=== PATIENT | male | born 1965 | race Caucasian/White ===

== ENCOUNTER → 2023-05-04 | Outpatient (CLI) | payer SELFPAY ==
--- NOTE | 2023-05-04 10:33 | RAD_ITS ---
EXAM: XR LEFT SHOULDER COMPLETE, 2 OR MORE VIEWS CLINICAL INDICATION: PAIN/LIMITED ROM TECHNIQUE: Two or more views of the left shoulder. COMPARISON: No relevant prior studies available. FINDINGS: BONES/JOINTS: Unremarkable. No acute fracture. No subluxation. Normal alignment. Preservation of the joint space. No sclerotic or destructive changes observed. SOFT TISSUES: Unremarkable. No soft tissue swelling or gas. No radiopaque foreign body. RAD/Shoulder min 2 Views IMPRESSION: Negative left shoulder x-rays. Electronically Signed: Manav Hung MD at 0:30 EDT ,
== END | disposition home or self-care (01) ==
PROVIDERS: PCP Nurse Practitioner Family; Referring Provider Nurse Practitioner Family; Visit Provider Nurse Practitioner Family
DX: M25.512 Pain in left shoulder (principal)
CPT/HCPCS: 73030

== ENCOUNTER 2023-05-31 10:00 | Outpatient (RCR) | payer SELFPAY ==
--- NOTE | 2023-05-17 11:25 | HP.PTEVAL_ITS ---
Patient's Visit Information Visit Information Visit Information: FABIAN AGUILAR is a 57 year old M referred to Physical Therapy by Dr. Duane Daily MD with a diagnosis of Left Shoulder. Date of Evaluation: 05/17/23 Physical Therapist: Wendy Robertson DPT Visit Plan Frequency: 1x/Week Duration: 4 Weeks Plan: Patient given HEP for ROM- will re-check patient in 2 weeks- will then either progress HEP or return to MD for further evaluation. HEP Given IE: Table Walk Away Flexion/Abduction and Wall Wash Flexion/Abd Subjective Subjective: Left shoulder- torn RTC and Labrum- slipped and fell- 17 of February- went to chiropractor- laser therapy- got some better- went to ortho had an MRI (results: radiologist interpretation states complete tear of the supraspinatus tendon. There is tendon retraction of 2.8 cm. Thickening and abnormal signal of the subscapularis tendon is present and consistent with tendinosis. There is fluid in the subscapular recess. There is a small loose body in the recess measuring 4 mm. There is articular surface tear of the infraspinatus tendon. There is atrophy of the supraspinatus muscle. There is a tear of the superior labrum and anterior labrum. There is degeneration of the posterior labrum. There is a tear in the middle glenohumeral ligament at the glenoid. Thinning of the articular cartilage of the glenohumeral joint. There is superior or posterior subluxation of the humeral head relative to the glenoid. Degenerative change at the AC joint.) Dr. Daily told him that he needed do PT prior to s urgery to get some movement and then have surgery. He wanted him to do 4 weeks of PT then come back and see him. When he is sitting he is 0/10 pain. Worst: 8/10 Agg: movement. The pain is located in the anterior and superior shoulder that radiates to the elbow and will ache into the palm of his hand. Will radiate into the upper trap but no into the neck. No RODRIGUES, blurred vision, dizziness. No N/T in the hand. Pain he feels he is 20%- function 20%. Sleep: disturbed but is getting better. Right hand dominate. 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 His goal is to put this off until middle of June due to Pelican Season. PMHx/Meds: no changes since ortho visit. Objective Objective: Posture: FH, RS- mild guarding of the left UE Palpation: tender along bicipital groove ROM:Cervical: WNL, Elbow/Wrist/Hand: WNL, Shoulder: AROM Flexion: 110 (7/10) Abd: 110 (7/10), Ext: 50 (4/10) IR behind the Back: hand to middle of belt line (8/10) ER: 40 degrees (5/10), AAROM Flexion: 150 (6/10) Abd: 140 (6/10), IR behind the Back: hand to middle of belt line (8/10) ER: 40 degrees (5/10), PROM: extremely guarded Strength: Neutral Isometric: Flexion: 4+/5 (5/10) Abd: 4-/5 (3/10), Ext: 5/5(0/10) IR: 3+/5 (3/10) ER: 2+/5 (8/10), Elbow: Flexion: 4/5 (4/10), Extn: 4/5 (4/10), Director Human Services: 100 bilateral Balance/Special Test Scores Quick DASH Score: 36.3625 Goals Goal 1:: Patient will be I with HEP and progression Goal Time Frame: 4-6 Weeks Goal 2:: Patient will demo 150 degrees of AROM flexion/abduction of the left shoulder Goal Time Frame: 4-6 Weeks Rehabilitation Potential Physical Therapy Diagnosis: Patient presents with hypomobility- he has decreased ROM in left shoulder s/p fall. Rehabilitation Potential: Fair Anticipated Interventions Therapeutic Exercise to Include: Passive ROM and Active ROM Text: Thank you for the opportunity to evaluate your patient. For Medicare and Medicare HMO plans, please review the plan of care and approve it. It will need to be FAXED BACK to us at [phone] for Medicare purposes. For Medicare only, by signing this I certify the plan of care. Please let me know if there are questions or concerns regarding this plan of care. Physician Signature: Date:
--- NOTE | 2023-05-31 10:26 | HP.PTDCSUM_ITS ---
Discharge Summary D/C summary: It has been my pleasure to treat FABIAN AGUILAR referred by Dr. Duane Daily MD, with the diagnosis of Left Shoulder for a total of 2 visit(s). Discharge Date: Please see the following information for a summary of their discharge status. Subjective Subjective: Patient reports that the shoulder is loosening up a little better- he can do more things with it- he still has the same amount of pain with shoulder. He does not have an apt to go back and see the surgeon- he has been working the shoulder. Overall Improvement % Improvement: 60 Objective Objective/Function: Cervical: WNL, Elbow/Wrist/Hand: WNL, Shoulder: AROM Flexion: 130 (7/10) Abd: 120 (7/10), Ext: 70 (1/10) IR behind the Back: thumb to L1 (8/10) ER: 50 degrees (1/10), AAROM Flexion: 170 (6/10) Abd: 140 (6/10), IR behind the Back: hand to middle of belt line (10) ER: 40 degrees (5/10), PROM: extremely guarded Strength: Neutral Isometric: Flexion: 4+/5 (0/10) Abd: 4+/5 (1/10), Ext: 5/5(0/10) IR: 4/5 (1/10) ER: 2+/5 (5/10), Elbow: Flexion: 4+/5 (0/10), Extn: 4+/5 (010), Software Installer: 100 bilateral Goals Goal 1:: Patient will be I with HEP and progression Goal Progress: Goal Met Goal 2:: Patient will demo 150 degrees of AROM flexion/abduction of the left shoulder Goal Progress: Goal Met Plan Plan: 05/31/23: Discharge to I HEP and follow up with MD IE: Patient given HEP for ROM- will re-check patient in 2 weeks- will then either progress HEP or return to MD for further evaluation. HEP Given IE: Table Walk Away Flexion/Abduction and Wall Wash Flexion/Abd D/C Information d/c sentence: If there are questions or concerns regarding this patient's physical therapy, please feel free to call me at [phone]. Thank you for the referral of this patient. Sincerely, Wendy Robertson, DPT Balance/Gait/Functional tests Balance/Special Test Scores Quick DASH Score: 25.0000 Improvement % Improvement: 60
== END 2023-05-31 13:52 | disposition home or self-care (01) ==
LOC: PT 10:00
PROVIDERS: PCP Nurse Practitioner Family; Referring Provider Orthopaedic Surgery Sports Medicine; Visit Provider Orthopaedic Surgery Sports Medicine
DX: M25.512 Pain in left shoulder (principal); M25.612 Stiffness of left shoulder, not elsewhere classified
CPT/HCPCS: 97110; 97162; 97164

== ENCOUNTER 2023-08-31 05:19 | Day surgery (SDC) | payer SELFPAY ==
--- NOTE | 2023-08-31 05:27 | EKG12_ITS ---
Test Reason : PRE-OP Blood Pressure : / mmHG Vent. Rate : 055 BPM Atrial Rate : 055 BPM P-R Int : 170 ms QRS Dur : 090 ms QT Int : 440 ms P-R-T Axes : 009 031 023 degrees QTc Int : 420 ms Sinus bradycardia with sinus arrhythmia Otherwise normal ECG No previous ECGs available Confirmed by HAWK FLORES, JUNG ([id number]), editorial assistant TAINA BELLAMY ([id number]) on 09/06/2023 11:25:53 AM Referred By: Duane Daily Confirmed By:JUNG ARECHIGA MD
[2023-08-31 06:02] VITALS: BP 135/75; PULSE 55; RESP 16; TEMP 36.3; O2SAT 97; BMI 28.6
[2023-08-31] MEDS: Lactated Ringers 1,000 ML 15 ML IV (06:10)
--- NOTE | 2023-08-31 07:09 | PCM.HP.STD ---
HPI - General HPI Narrative FABIAN AGUILAR, is a 58 M who presents for left shoulder arthroscopy, subacromial decompression, rotator cuff repair, possible biceps tenodesis. no changes to h and p. left shoulder marked. rab and narcotic counselling, ok to proceed. plan for a block. MR#: [id number] Acct: [id number] Name: FABIAN AGUILAR Rep #: [id number] : 1965 Provider: Dr. Duane Daily MD Age/Sex: 57/M Location: [facility] [place] Status: Signed Intake Vital Signs 05/13/2309:49 Height 5 ft 9 in Weight: 201 lb BMI 29.7 Intake Visit Reasons: LEFT SHOULDER Chief Complaint: left shoulder Accompanied by: Self Is patient in pain?: Yes Pain scale (1-10): 6 Allergies No Known Allergies Allergy (Unverified 06/10/23 13:10) Medications NK 05/13/23 [History Confirmed 06/10/23] PFSH Medical History Detachment of left glenoid labrum Left rotator cuff tear Left shoulder pain Stiffness of left shoulder joint Social History Smoking Status: Never smoker alcohol intake: never substance use type: does not use HPI LEFT SHOULDER Details: Parts of this documentation were recorded by a scribe, this documentation accurately reflects the service provided and the decisions made by me, Dr. Duane Daily MD 06/10/23 1113. FABIAN AGUILAR is a 57 year old M here today for FU L shoulder pain, RC tear + SLAP and stiffness, doing PT for the stiffness prior to considering surgery. The shoulder still feels weak and painful but he has been working diligently with physical therapy over the last 6 weeks and has made things in terms of that. Ortho Exam General General: Yes no acute distress Neurologic: Yes alert and Yes oriented x3 Psychologic: Yes reasonable and appropriate Left Shoulder Skin/Wound: Yes CDI, No ecchymosis, No erythema and No swelling Testing: Yes Hawkin's and Yes Neer's SHOULDER: Active and passive forward elevation 145 degrees external rotation 45 degrees. Strength in forward elevation 4/5 strength in external rotation 4/5. Negative Hornblower's test negative lag sign. He is quite weak in forward elevation. Coding Level of Care Code Off vis,est,level 3 Diagnoses Left rotator cuff tear M75.102 Detachment of left glenoid labrum S43.82XA Stiffness of left shoulder joint M25.612 Assessment and Plan Assessment and Plan (1) Left rotator cuff tear: Status: Acute Plan: 57-year-old man with some still mild shoulder stiffness and definite weakness he likely has had an acute rotator cuff tear from the fall. It also shows a tear of the superior aspect of the labrum consistent with a SLAP tear. He could continue to try nonoperative management and strengthening but I favor this to be more so keeping with an acute tear and he has the risk of having tendon retraction and fatty infiltration and continued problems with the shoulder with non op care. That being said surgery does have risk of stiffness difficulty healing the tear or retear and other problems associated with surgery that we discussed. He would like to go ahead with left shoulder arthroscopy, subacromial decompression, rotator cuff repair, possible biceps tenodesis explained this to him as well as recovery 3 to 6 months before going back to lifting. 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 He understands would like to proceed with surgery. Pros and cons risks and benefits were discussed with the patient including but not limited to infection, pain, stiffness, bleeding, damage to surrounding structures, neurovascular injury, recurrence or retear, failure or wear of hardware or fixation, instability, fracture, deep vein thrombosis and pulmonary embolism, anesthetic risks, , patient dissatisfaction, need for further surgery and other risks. Patient understood and wished to proceed with surgery, and signed the informed consent documentation. from prior note 57-year-old man 2 months history of left shoulder injury with a rotator cuff tear weakness and stiffness. He also seems to have suffered potentially a subluxation or instability of the shoulder with the MRI evidence of labral tear. I think with the subluxation labral tear he is going on to develop stiffness given age and injury pattern, as well as from disuse. Low chance of repeat instability. Overall if this is an acute tear I would recommend for rotator cuff repair arthroscopically but he has quite a bit of even passive stiffness and going into surgery immediately would exacerbate this and make the recovery extremely difficult very high chance of postoperative stiffness. At this point I would like the patient to do work on passive and assisted stretching made a physical therapy referral asked him to do this twice a week as well as on his own at home showed him table slides wall walks and various other methods to work on his forward elevation and external rotation stiffness and follow-up in 4 weeks time. If at that time that his range of motion has improved can consider going ahead with arthroscopic decompression rotator cuff repair possibly stabilization although this is known to contribute to high levels of stiffness postoperatively as well as possibly a procedure on the biceps based on if he has a SLAP tear arthroscopically. He understands no further questions or concerns. (2) Detachment of left glenoid labrum: Status: Acute (3) Stiffness of left shoulder joint: [facility] Medical History (Updated 08/19/23 @ 11:15 by Patt Schultz) Detachment of left glenoid labrum Heartburn Left rotator cuff tear Left shoulder pain Non-smoker Stiffness of left shoulder joint Wears partial dentures Home Medications NK 05/13/23 [History Last Taken Unknown] Allergy/AdvReac Type Severity Reaction Status Date / Time No Known Allergies Allergy Verified 08/31/23 05:57 Surgical History (Updated 08/19/23 @ 11:15 by Patt Schultz) Hx laparoscopic cholecystectomy Hx of appendectomy Social History Smoking Status: Never smoker alcohol intake: never substance use type: does not use Vital Signs Vital Signs Vital Signs: 08/31/23 06:02 08/31/23 06:02 Temperature 97.4 F L Temperature Source Temporal Pulse Rate 55 L Respiratory Rate 16 Respiratory Pattern Normal Blood Pressure 135/75 H Blood Pressure Mean 95 Blood Pressure Source Monitor Blood Pressure Position Semi-Fowlers Blood Pressure Location Right Arm Pulse Ox 97 Oxygen Delivery Method Room Air Weight Weight: 194 lb 0.108 oz Body Mass Index (BMI) 28.6
[2023-08-31] MEDS: Cefazolin 2 GM in 0.9% Normal Saline (100mL Bag) 100 ML IV (07:25)
[2023-08-31] MEDS: Epinephrine (1 mg/ml) 1 MG/ML VIAL (08:14)
--- NOTE | 2023-08-31 10:33 | PCM.OPRPT ---
Problems Associated Problem List Diagnoses (1) Stiffness of left shoulder joint: (2) Left shoulder pain: (3) Left rotator cuff tear: Report of Operation Date of Procedure: 08/31/23 Pre-Operative Diagnosis: L shoulder rotator cuff tear possible slap Post-Operative Diagnosis: left shoulder rotator cuff tear Surgery/Procedure Performed:: left shoulder arthroscopy, rotator cuff repair, subacromial decompression Surgeon: Duane Daily Type of Anesthesia: Block,Regional and General Anesthesiologist: John Gonzalez Estimated Blood Loss (mL): 100 Description of Procedure: Patient brought to room theater. Placed supine on the table. General anesthesia induced. 2 g IV Ancef administered prior to the start of the procedure. Patient transferred left side up lateral decubitus position with beanbag positioner. SCDs on the legs axillary roll used all bony prominences padded. 10 pounds of inline traction with the arm in 45 degrees abduction was used. Upper extremity prepped and draped in the usual sterile fashion chlorhexidine-based prep solution allowing over 3 minutes drying time prior to draping. Preoperative timeout performed to confirm the site patient and the surgery. Began by inserting the arthroscope into the intra-articular portion of the shoulder. Did a full diagnostic arthroscopy. Cartilage on the glenoid and humeral head was normal. Normal axillary recess. Infraspinatus tendon appeared normal. Biceps root was normal stable solid to probing no tears of the biceps tendon. Some mild fraying of the anterior labrum partial tearing at 4 oclock This was left alone - symptoms of pre op stiffness with plan for cuff repair. I made an anterior portal inside-out spinal needle localization through the rotator interval just posterior to the biceps. Subscapularis appeared normal. I then placed the scope into the subacromial space. Did a bursectomy. Establish [address] and AL portals with canulas. There is a large full-thickness crescent tear, retracted nearly to the level of the glenoid full-thickness tear of the supraspinatus tendon. This was not mobile. I had to do anterior and posterior interval slides. I placed a stay suture and traction suture to do this. I elevated below as well as superiorly at the tendon. I stayed about 1 cm only lateral to the glenoid to avoid the nerve. Assess mobility. Again this was still difficult to get fully mobile given the stiffness there are decided to medialize the tendon insertion by about 5 mm. I prepared the tuberosity. Did a subacromial decompression to flat margins using high speed dariela. I used the Arthrex power pick instrument for a number of trephination holes at the greater tuberosity to stimulate healing. I placed 2 Arthrex 4.75 mm bio composite knotless anchors just medial to the united [place]ub[place] footprint. I added and passed the fiber tape sutures 2.5 cm bite inferior to superior through the tendon and then the knotless portion of the sutures as well past this just medial and posterior to the original sutures. For the posterior sutures the knotless portion was just anterior to the fiber tapes. I shuttled these using fiber link suture. I then passed the repair suture from the posterior anchor through the passing suture loop of the anterior anchor. I then delivered this in a knotless fashion. I did perform the same with the anterior repair stitch. This delivered the tendon down to the footprint with good medial compression. The sutures were fully tensioned and cut short. I then took 1 suture from anterior and 1 suture from posterior (fiber tapes). I then again placed Arthrex 4.75 mm bio composite anchor anteriorly and posteriorly at the lateral margin of the footprint (punch to second line). This achieved good repair although not fully lateralized given the stiffness. I had 1 small area that was able to also be additionally repaired down with the knotless suture from the posterior anchor I passed this from inferior to superior. Overall this achieved good repair of the tendon slight medialization of the footprint. Arthroscopy pictures taken and saved throughout the case onto the system. Sutures cut short. Case was terminated wounds thoroughly irrigated. Portal sites were closed with 3-0 Monocryl suture. Skin cleaned with wet and dry dressing follow-up application of Steri-Strips Adaptic 4 x 4 gauze ABD dressing and cloth tape with abduction pillow sling for the upper extremity. Patient woken up from the general anesthetic transferred off the operating table and taken to postanesthetic care unit in stable condition. All sponge needle instrument counts were correct no complications. cpt 97707? Complications none Admit VTE Documentation VTE Present on Admission: No VTE Mechan Device Prophylaxis: SCD's VTE Pharm Prophylaxis ordered?: No Reason prophylaxis not ordered:: Treatment Not Indicated Procedures Musculoskeletal 20xxx-29xxx: Other Procedure See Report
--- NOTE | 2023-08-31 10:45 | EX.PCM.DISCH ---
Discharge Instructions Diet Discharge Diet: No restrictions Activity Discharge Activity: Return to Normal Activity Ice area for (Minutes): 10 Lifting Restrictions: pendulums only, elbow hand and wrist rom Dressing / Incision Call your doctor if your incision/area has: Continuous Slow Oozing, Sudden Increased Bleeding, Increased Pain/ Swelling, Increased Redness, Foul Smelling Discharge and Swelling at the incision site Remove Dressing in: leave in place till F/U Follow Up Care Please Follow Up With: Duane Daily MD When: 2 days Test Results: Test results from this visit will be discussed in further detail at your follow-up appointment, if applicable. Discharge Plan Admission Attending Provider: Duane Daily Primary Care Provider: Salome Kenney NP Discharge Orders/Prescriptions Prescriptions: New oxycodone-acetaminophen [Percocet] 5-325 mg tablet 1 tab PO Q4H MDD 6 PRN (Reason: pain) 5 Days Qty: 30 0RF Referrals / Follow Up: Duane Daily MD [Med Staff - Active Staff] - Salome Kenney NP, CLINICAL TRAINING COORDINATOR-C [Primary Care Provider] - Disposition Disposition (needs filled in before D/C Order can be placed): Home, Self Care
[2023-08-31 11:00] VITALS: BP 117/79; BP 135/75; PULSE 63; PULSE 74; RESP 14; RESP 18; TEMP 35.6; O2SAT 93
[2023-08-31 11:10] VITALS: BP 111/66; BP 135/75; PULSE 62; RESP 14; O2SAT 92
[2023-08-31 11:15] VITALS: BP 107/74; BP 135/75; PULSE 59; RESP 14; O2SAT 94
[2023-08-31 11:29] VITALS: BP 108/76; BP 135/75; PULSE 55; RESP 16; TEMP 35.6; O2SAT 93
--- NOTE | 2023-08-31 12:55 | CHAPLAIN ---
Type of Pastoral Visit _x__ Initial Visit ___ Follow-up Visit ___ On-call Visit ___ General Patient Visit ___ Spiritual Assessment ___ Family Conference ___ Bereavement ___ Rapid Response ___ Code Blue ___ Other (describe below) Pastoral Care Referral From ___ Patient _x__ Family ___ Nurse ___ Physician ___ Physician Practice Coordinator ___ Hospice Office Coordinator ___ Other (describe below) Sacrament/Intervention _x__ Active listening ___ Anointing ___ Presybeterian ___ Bereavement ___ Communion ___ Johanna exploration ___ ___ Life review _x__ Prayer ___ Reconciliation ___ Sacrament of Sick _x__ Supportive presence ___ Wedding ___ Other (describe below) Pastoral Comments post op visit for support and prayer
--- NOTE | 2023-08-31 13:44 | SUR.PHASEII ---
DR BLANKENSHIP UPDATED THAT PATIENT IS READY FOR DISCHARGE.
[2023-08-31 13:45] VITALS: BP 106/63; BP 135/75; PULSE 53; RESP 16; TEMP 36.1; O2SAT 97
== END 2023-08-31 13:50 | disposition home or self-care (01) ==
LOC: SDC 05:21 → AC 05:25
PROVIDERS: PCP Nurse Practitioner Family; Referring Provider Orthopaedic Surgery Sports Medicine; Visit Provider Orthopaedic Surgery Sports Medicine
PROC: (CPT 29805; principal; 2023-08-31 07:10)
DX: S46.012A Strain of muscle(s) and tendon(s) of the rotator cuff of left shoulder, initial encounter (principal); M25.612 Stiffness of left shoulder, not elsewhere classified; S43.82XA Sprain of other specified parts of left shoulder girdle, initial encounter; W19.XXXA Unspecified fall, initial encounter
CPT/HCPCS: 29827; 64415; 01630; 93005; J7120; J2405

== ENCOUNTER 2024-01-23 09:00 | Outpatient (RCR) | payer SELFPAY ==
--- NOTE | 2023-10-03 18:12 | HP.PTEVAL ---
Patient's Visit Information Visit Information Visit Information: FABIAN AGUILAR is a 58 year old M referred to Physical Therapy by Dr. Duane Daily MD with a diagnosis of L RTC repair DOS: 08/31/23. Date of Evaluation: 10/03/23 Physical Therapist: Tony Weaver DPT Visit Plan Frequency: 2x /Week Duration: 4 Weeks Plan: 1)Start with PROM of L shoulder working flexion, abd, scapation and ER. 2)Progress to wanded exercises again focusing on end ranges of motion in 2 weeks May use ice to reduce symptoms as needed. Progress HEP as tolerated. Subjective Subjective: Pt. is here today for his initial evaluation with diagnosis L RTC repair. DOS: 08/31/23. Pt. arrives today without sling on. 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 Pt. reports hurting his arm when he slipped and fell while working. This occurred last summer. Pt. has a large supraspinatus tear. Pt. is overall doing well. No N/T noted. Pt. reports sleeping well, his shoulder is not waking him up at night. Pt. is pleased with progress as well. Pt. did start his therapy at other local clinic, but chose to move his care here. Pt. is hopeful to increase in strength and ROM in order to get back to all work and recreational activities without limitations. Pain L shoulder: Pain Intensity (Out of 10): 0 Objective Objective: POSTURE: Pt. has fairly normal posture in stance/sitting. Pt. has L arm in guarded posture. Pt. ambulates with L arm with limited arm swing. PALPATION: Pt. has some mild soreness with palpation of biceps and sub acromial space. NEURO: Pt. has normal sensation throughout BUEs. ROM: L shoulder: PROM: 132 deg flex, ABD 110 deg, ER 20 deg. at side MMT: R shoulder 5/5 throughout, L shoulder not tested. Balance/Special Test Scores Quick DASH Score: 45.4525 Goals Goal 1:: LTG: Pt. to be I with HEP. Goal Time Frame: 4-6 Weeks Goal 2:: STG: Pt. to have increased L shoulder PROM to full without increase in symptoms. Goal Time Frame: 2-4 Weeks Goal 3:: LTG: Pt. to have full AROM of L shoulder without increase in symptoms. Goal Time Frame: 4-6 Weeks Goal 4:: LTG: Pt. to have symmetrical strength between BUEs Goal Time Frame: 6-8 Weeks Goal 5:: LTG: Pt. to resume all work duties without increase in symptoms. Rehabilitation Potential Physical Therapy Diagnosis: Pt. has signs and symptoms consistent with L RTC repair on 08/31/23. Pt. has subsequent hypomobility, weakness and increased pain. Pt. would benefit from PT. to address the above limitations, progressing ROM initially then progressing back to all AROM. Rehabilitation Potential: Excellent Anticipated Interventions Patient/Client Instruction: Educate patient on: Condition, Plan of Care, Risk Factors and Benefits of Fitness Program For the Purpose of:: To improve decision making, To facilitate caregiver knowledge, To improve self management, To prevent re-injury, To improve ability to perform tasks related to life management and To improve tolerance to ADL's Therapeutic Exercise to Include: Strength training, Power training, Postural training, Flexibilty training, Passive ROM, Active ROM and Scapular Strength/Stabilization For the Purpose of:: To decrease pain, To increase ROM, To improve nutrient delivery to tissue, To increase oxygenation perfusion, To improve muscle performance and motor function, To improve ability to perform ADL's, To increase tolerance to activity/condition/position, To improve performance and independence with ADL's, To decrease soft tissue restriction and To increase flexibility/ROM Manual Therapy Techniques to Include: Passive ROM and Soft tissue mobilization For the Purpose of:: To decrease pain, To decrease swelling/inflammation, To increase ROM, To improve nutrient delivery to tissue and To increase oxygenation perfusion Cryotherapy (ice pack, ice massage): Yes Thermo therapy (hot pack): Yes Text: Thank you for the opportunity to evaluate your patient. For Medicare and Medicare HMO plans, please review the plan of care and approve it. It will need to be FAXED BACK to us at [phone] for Medicare purposes. For Medicare only, by signing this I certify the plan of care. Please let me know if there are questions or concerns regarding this plan of care. Physician Signature: Date:
--- NOTE | 2023-10-31 12:01 | HP.PTREVAL ---
Re-Evaluation Intro: Dr. Duane Daily MD, It has been my pleasure to treat FABIAN AGUILAR over the last 9 visits for L RTC repair DOS: 08/31/23. Please see the progress note below for an update on the physical therapy plan of care! Subjective Subjective: Pt. reports no pain at rest, but has increased pain with active motion. He is sleeping well. He did see his physician whom progressed him to AROM, but to hold off from strengthening for another 4 weeks. Objective Objective/Function: L shoulder: PROM: flexion 162deg, abd 150deg, ER at 90deg of abd 38deg. IR at 90deg of abd 30deg. AROM: flexion 110deg, abd 94deg, functional ER C2 aberrant motion, functional IR L5 tightness noted. Pt. presents both being tight into end ranges of his motion. AROM is still fairly limited. He is allowed to progress to AROM at this point in time, which has started a bit already. I would like him to progress AROM as well as work into stretching into end ranges of flexion, abd, ER and IR motions. I did initiate light isometrics as well, in non painful activation. Pt. did well without issues. Plan Plan Plan: 1) AROM progressive to full motion 2) end range stretching progressing to full 3) progress HEP for the above movements 4) able to start light resistance week of Oct 30 Balance/Gait/Functional tests Balance/Special Test Scores Quick DASH Score: 34.0900 Goals Goals Goal 1:: LTG: Pt. to be I with HEP. Goal Time Frame: 4-6 Weeks Goal 2:: STG: Pt. to have increased L shoulder PROM to full without increase in symptoms. Goal Time Frame: 2-4 Weeks Goal 3:: LTG: Pt. to have full AROM of L shoulder without increase in symptoms. Goal Time Frame: 4-6 Weeks Goal 4:: LTG: Pt. to have symmetrical strength between BUEs Goal Time Frame: 6-8 Weeks Goal 5:: LTG: Pt. to resume all work duties without increase in symptoms. Anticipated Interventions Anticipated Interventions Patient/Client Instruction: Educate patient on: Condition, Plan of Care, Risk Factors and Benefits of Fitness Program For the Purpose of:: To improve decision making, To facilitate caregiver knowledge, To improve self management, To prevent re-injury, To improve ability to perform tasks related to life management and To improve tolerance to ADL's Therapeutic Exercise to Include: Strength training, Power training, Postural training, Flexibilty training, Passive ROM, Active ROM and Scapular Strength/Stabilization For the Purpose of:: To decrease pain, To increase ROM, To improve nutrient delivery to tissue, To increase oxygenation perfusion, To improve muscle performance and motor function, To improve ability to perform ADL's, To increase tolerance to activity/condition/position, To improve performance and independence with ADL's, To decrease soft tissue restriction and To increase flexibility/ROM Manual Therapy Techniques to Include: Passive ROM and Soft tissue mobilization For the Purpose of:: To decrease pain, To decrease swelling/inflammation, To increase ROM, To improve nutrient delivery to tissue and To increase oxygenation perfusion Cryotherapy (ice pack, ice massage): Yes Thermo therapy (hot pack): Yes Re-Evaluation Ending Re-evaluation ending: Please do not hesitate to contact me at [phone] by phone or if you have questions or concerns regarding this new plan of care! Sincerely, Tony Weaver DPT
--- NOTE | 2023-11-30 10:52 | HP.PTREVAL ---
Re-Evaluation Intro: Dr. Duane Daily MD, It has been my pleasure to treat FABIAN AGUILAR over the last 13 visits for L RTC repair DOS: 08/31/23. Please see the progress note below for an update on the physical therapy plan of care! Subjective Subjective: Pt does not currently have a follow-up with physician scheduled, feels he is seeing improvement but progress has been slow. Still feels weak, unable to lift fully overhead. Is currently working and able to lift 50# below his waist. Objective Objective/Function: L shoulder AROM: 108 deg ABD, 115 deg flex, ER to occiput, IR to L iliac crest PROM: with slight OP 160 ABD, 150 flex with muscular tightness at end range JOINT PLAY: min to mod stiffness of L GH joint, greatest restriction d/t lat and pec tightness MMT: 3/5 in all directions with some upper trap compensations POSTURE: rounded shoulders Overall pt demo's low level of pain and irritability with shoulder, most limited by strength when resisting gravity. Pt demo's a need to stretch pecs and lats before beginning ex, but no major joint limitations Plan Plan Plan: -stretching into end range to ensure FULL ROM before beginning strengthening during session -strengthening is our major goal: greatest difficulty with ABD and ER, pt has little to no pain so increase resistance as pt tolerates >wall walks, clocks, prone delt ex.... will need to begin with low level ABD ex to avoid severe upper trap compensation Pts current HEP is phase 3 RTC repair ex, using yellow/orange/green bands as appropriate Balance/Gait/Functional tests Balance/Special Test Scores Quick DASH Score: 34.0900 Goals Goals Goal 1:: LTG: Pt. to be I with HEP. Goal Time Frame: 4-6 Weeks Goal Progress: Goal Met Goal 2:: STG: Pt. to have increased L shoulder PROM to full without increase in symptoms. Goal Time Frame: 2-4 Weeks Goal Progress: Progressing Goal 3:: LTG: Pt. to have full AROM of L shoulder without increase in symptoms. Goal Time Frame: 4-6 Weeks Goal Progress: Progressing Goal 4:: LTG: Pt. to have symmetrical strength between BUEs Goal Time Frame: 6-8 Weeks Goal Progress: Progressing Goal 5:: LTG: Pt. to resume all work duties without increase in symptoms. Goal Progress: Progressing Anticipated Interventions Anticipated Interventions Patient/Client Instruction: Educate patient on: Condition, Plan of Care, Risk Factors and Benefits of Fitness Program For the Purpose of:: To improve decision making, To facilitate caregiver knowledge, To improve self management, To prevent re-injury, To improve ability to perform tasks related to life management and To improve tolerance to ADL's Therapeutic Exercise to Include: Strength training, Power training, Postural training, Flexibilty training, Passive ROM, Active ROM and Scapular Strength/Stabilization For the Purpose of:: To decrease pain, To increase ROM, To improve nutrient delivery to tissue, To increase oxygenation perfusion, To improve muscle performance and motor function, To improve ability to perform ADL's, To increase tolerance to activity/condition/position, To improve performance and independence with ADL's, To decrease soft tissue restriction and To increase flexibility/ROM Manual Therapy Techniques to Include: Passive ROM and Soft tissue mobilization For the Purpose of:: To decrease pain, To decrease swelling/inflammation, To increase ROM, To improve nutrient delivery to tissue and To increase oxygenation perfusion Cryotherapy (ice pack, ice massage): Yes Thermo therapy (hot pack): Yes Re-Evaluation Ending Re-evaluation ending: Please do not hesitate to contact me at [phone] by phone or if you have questions or concerns regarding this new plan of care! Sincerely, Tony Weaver DPT
--- NOTE | 2023-12-19 14:49 | HP.PTREVAL ---
Re-Evaluation Intro: Dr. Duane Daily MD, It has been my pleasure to treat FABIAN AGUILAR over the last 16 visits for L RTC repair DOS: 08/31/23. Please see the progress note below for an update on the physical therapy plan of care! Subjective Subjective: Pt reports some soreness d/t strengthening act, has been sleeping better. 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 Pt got into a tractor about a week ago and caught his elbow, caused some pain in shoulder at rest but it resolved after about 2 or 3 days, increased stiffness after that. Pt has been doing HEP, most lifting and pain down at side. Objective Objective/Function: AROM: L - flex 130 stiff, 100 deg ABD painful, ER to base of occiput, IR to T10 PROM: flex 150 some pinch at top of shoulder with end range OP, ABD 150 MMT: IR at side 4/5, ER 3+/5, ABD 3-/5 with UT compensation, flex 3-/5 Pt progressing at slightly slower than exepcted pace. Pts ROM limited by muscular tightness and some mild joint restriction (springy), need to improve ROM and target strength with lifting arm, especially deltoid. Pain no longer a limiting factor, stiffness continues. Focus on stretching and strengthening, 1x a week for another 6 weeks. Plan Plan Plan: -shoulder stretching and grade 3/4 joint mobs to increase flex and ABD (need to achieve full ROM during session before beginning strengthening) -high rep strengthening: delts, biceps, ER, scapular >could trial modified or AAROM I/Y/T, AAROM, isometrics...progress strengthening as much as possible >do within pt tolerance, increase resistance with bands or weight with stronger muscle groups, but need to increase ability to lift arm (AROM or AAROM) (HEP: wall slides, isometrics) Balance/Gait/Functional tests Balance/Special Test Scores Quick DASH Score: 34.0900 Goals Goals Goal 1:: LTG: Pt. to be I with HEP. Goal Time Frame: 4-6 Weeks Goal Progress: Goal Met Goal 2:: STG: Pt. to have increased L shoulder PROM to full without increase in symptoms. Goal Time Frame: 2-4 Weeks Goal Progress: Progressing Goal 3:: LTG: Pt. to have full AROM of L shoulder without increase in symptoms. Goal Time Frame: 4-6 Weeks Goal Progress: Progressing Goal 4:: LTG: Pt. to have symmetrical strength between BUEs Goal Time Frame: 6-8 Weeks Goal Progress: Progressing Goal 5:: LTG: Pt. to resume all work duties without increase in symptoms. Goal Progress: Progressing Anticipated Interventions Anticipated Interventions Patient/Client Instruction: Educate patient on: Condition, Plan of Care, Risk Factors and Benefits of Fitness Program For the Purpose of:: To improve decision making, To facilitate caregiver knowledge, To improve self management, To prevent re-injury, To improve ability to perform tasks related to life management and To improve tolerance to ADL's Therapeutic Exercise to Include: Strength training, Power training, Postural training, Flexibilty training, Passive ROM, Active ROM and Scapular Strength/Stabilization For the Purpose of:: To decrease pain, To increase ROM, To improve nutrient delivery to tissue, To increase oxygenation perfusion, To improve muscle performance and motor function, To improve ability to perform ADL's, To increase tolerance to activity/condition/position, To improve performance and independence with ADL's, To decrease soft tissue restriction and To increase flexibility/ROM Manual Therapy Techniques to Include: Passive ROM and Soft tissue mobilization For the Purpose of:: To decrease pain, To decrease swelling/inflammation, To increase ROM, To improve nutrient delivery to tissue and To increase oxygenation perfusion Cryotherapy (ice pack, ice massage): Yes Thermo therapy (hot pack): Yes Re-Evaluation Ending Re-evaluation ending: Please do not hesitate to contact me at [phone] by phone or if you have questions or concerns regarding this new plan of care! Sincerely, Tony Weaver DPT
== END 2024-01-23 19:00 | disposition home or self-care (01) ==
LOC: PT 09:00
PROVIDERS: PCP Nurse Practitioner Family; Referring Provider Orthopaedic Surgery Sports Medicine; Visit Provider Orthopaedic Surgery Sports Medicine
DX: M75.102 Unspecified rotator cuff tear or rupture of left shoulder, not specified as traumatic (principal); M25.612 Stiffness of left shoulder, not elsewhere classified
CPT/HCPCS: 97110; 97140; 97161; 97164; 97530